=== PATIENT | female | born 1985 | race Caucasian/White ===

== ENCOUNTER 2018-07-07 06:05 | Emergency (ER) | payer OTHER ==
[2018-07-07 06:37] VITALS: BP 109/65; PULSE 61; TEMP 97.9; BMI 24.1
[2018-07-07] MEDS ORDERED: METHOCARBAMOL 750 MG TAB PO ONE (07:32)
[2018-07-07] MEDS ORDERED: ACETAMINOPHEN 500 MG TABLET (FP) PO ONE (07:32)
[2018-07-07] MEDS ORDERED: LIDOCAINE 5% TOPICAL PATCH TP ONE (07:36)
--- NOTE | 2018-07-07 07:39 | PDOC ---
Attending Attestation - [facility] HPI: 07/07/18 08:45 The patient is a 33-year-old female with past medical history significant for hypothyroidism and migraine (with a single episode of color vision loss, improved after 30 minutes), presents to the emergency department with right side neck and shoulder pain. The patient reports the pain presented on Thursday, states it is possible that she might have slept the wrong way. The patient reports going to work on Thursday, where she was moving stuff, denies heaving lifting. The patient presents today with constant pain to the right side that varies in severity. The patient reports taking Tylenol for the pain and using a heat pain, with mild relief noted. Denies prior similar pain, pain radiation to the arm, injury or trauma to the area. Denies fever, chills, cough, headache, chest pain, shortness of breath, numbness, tingling, weakness, urinary symptoms or changes in bowel habits. Allergies: ibuprofen and penicillin Social history: No past or present use of tobacco, alcohol or recreational drugs. Surgical history: None reported PCP: Dr. Arriaga. - Physicial Exam PE: 07/07/18 08:46 GENERAL: The patient is in no acute distress. HEAD: Normal with no signs of trauma. EYES: PERRLA, EOMI, sclera anicteric, conjunctiva clear. ENT: Ears normal, nares patent, oropharynx clear without exudates. Moist mucous membranes. NECK: +R. trapezius tenderness, no limitation with range of motion of the neck. supple without lymphadenopathy, JVD, or masses. LUNGS: Breath sounds equal, clear to auscultation bilaterally. No wheezes, and no crackles. HEART:Regular rate and rhythm, normal S1 and S2 without murmur, rub or gallop. ABDOMEN: Soft, nontender. No guarding, no rebound. No masses palpable. EXTREMITIES: Normal range of motion, no edema. No clubbing or cyanosis. No erythema, or tenderness. NEUROLOGICAL: Cranial nerves II through XII grossly intact. Normal speech. No focal neurological deficits. MUSCULOSKELETAL: Back non-tender to palpation, no CVA tenderness SKIN: Warm, Dry, normal turgor, no rashes or lesions noted. - Medical Decision Making 07/07/18 08:46 Documentation prepared by Kate Sanchez, acting as ophthalmic medical assistant for Iliana Espino MD/DO. <Kate Sanchez - Last Filed: 07/07/18 08:45> - Resident Resident Name: Nicole Garrison - ED Attending Attestation I have performed the following: I have examined & evaluated the patient, The case was reviewed & discussed with the resident, I agree w/resident's findings & plan, Exceptions are as noted - Medical Decision Making 33 yo F presenting with right trapezius pain Present for the past 2 days No trauma Pt awoke with these symptoms which were bearable Pt went to work and noted that her symptoms worsened No direct trauma No swelling No bruising No fevers or chills No limitations in range of motion of the neck No headache Pt has point tenderness in the right trapezius Pt given tylenol (allergic to NSAIDS) and muscle relaxant Pain has improved Will discharge to home Will ask pt to follow up with PMD Return to the ER for any other concerns or complaints <Iliana Espino - Last Filed: 07/08/18 09:46>
--- NOTE | 2018-07-07 07:49 | PDOC ---
History of Present Illness - General Chief Complaint: Pain, Acute Stated Complaint: NECK/SHOULDER PAIN - History of Present Illness Initial Comments: Daksha Benitez is a 33yo woman with a history of migraine with aura and hypothyroidism who presents with right posterior neck and shoulder pain that started when she woke up on Thursday. 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 She felt a little better yesterday morning and went to work. This morning when she woke, the pain was severe and her neck movements are limited. She believes that typing at the computer all day yesterday worsened her pain. Ms Benitez has tried taking acetaminophen 500mg every 6 hours without relief. She states that applying heat has helped slightly with the pain. She has not tried applying ice. She has never had anything like this happen before. The pain does not radiate down the arm or back. She denies headache, congestion, nausea/ vomiting, anterior neck or shoulder pain, or limitation in arm movement. She denies all neurological symptoms. She is not aware of any injury or exacerbating factor that preceded the pain. Past History - Past Medical History Allergies/Adverse Reactions: Allergies Allergy/AdvReac Type Severity Reaction Status Date / Time ibuprofen [From Motrin] Allergy Severe Hives Verified 07/07/18 06:34 Penicillins Allergy Unknown "I can Verified 07/07/18 06:34 from it" Home Medications: Ambulatory Orders Methocarbamol [Robaxin -] 500 mg PO TID #21 tablet 07/07/18 Thyroid [[place] Thyroid] 15 mg PO DAILY 07/07/18 Anemia: No Cardiac Disorders: No COPD: No Diabetes: No GI Disorders: No HTN: No Kidney Stones: No Liver Disease: No Seizures: No Thyroid Disease: Yes (HYPO) - Surgical History Abdominal Surgery: No Cholecystectomy: No GI Surgery: No - Immunization History Immunization Up to Date: Yes - Suicide/Smoking/Psychosocial Hx Smoking Status: No Smoking History: Never smoked Have you smoked in the past 12 months: No Number of Cigarettes Smoked Daily: 0 Information on smoking cessation initiated: No Hx Alcohol Use: No Drug/Substance Use Hx: No Substance Use Type: None Hx Substance Use Treatment: No Review of Systems - Review of Systems Comments:: General: No fevers, no chills, no weight or appetite change, no malaise HEENT: No changes in vision, no changes in hearing, no congestion, no sore throat CV: No chest pain, no palpitations, no LE edema Pulm: No SOB, no cough, no wheezing GI: No nausea or vomiting, no change in bowel habits, no melena : No frequency, no urgency, no dysuria Musc: No back pain, no joint swelling, no recent injury. See HPI Skin: No rash, no lesions, no erythema Endo: No excessive thirst, no heat/cold intolerance. h/o hypothyroidism Heme: No unusual bruising or bleeding, no swollen glands Neuro: No syncope, no numbness/tingling, no focal weakness. h/o migraines Vasc: No claudication Psych: No recent change in mood, no SI or HI *Physical Exam - Vital Signs Last Vital Signs Temp Pulse Resp BP Pulse Ox 97.9 F 61 18 109/65 98 07/07/18 06:05 07/07/18 06:05 07/07/18 06:05 07/07/18 06:05 07/07/18 06:05 - Physical Exam Comments: General: Comfortable, no acute distress HEENT: PERRL, EOMI, MMM, voice normal. Neck ROM limited by pain - Can turn to ~ 45 degrees b/l, flexion intact, minimal extension. TTP along R trapezius m. Cards: RRR, no murmur appreciated Pulm: Comfortable on room air, clear to auscultation bilaterally Abd: Soft, nontender, nondistended Ext: Atraumatic. No LE edema. ROM intact. Strength 5/5 and equal bilaterally Vasc: Extremities WWP. Palpable radial and pedal pulses bilaterally Skin: Normal color, no rashes or lesions Neuro: A&Ox3, CN grossly intact, normal speech, motor/sensory grossly intact and symmetric Psych: Mood appropriate to situation Medical Decision Making - Medical Decision Making 07/07/18 07:45 Daksha Benitez is a 33yo woman with a h/o hypothyroidism and migraines who presents with right posterior neck and shoulder pain since Thursday. - Pain is located along the right trapezius muscle. - No associated symptoms, neurologically intact - Most likely a muscle spasm - Ibuprofen allergy. Will give 1000mg acetaminophen, 750mg robaxin, lidocaine patch for symptoms - Most likely d/c home if pain is improved 07/07/18 08:34 - Pain improved significantly, improved ROM in neck - Plan to discharge home. Discussed home care and follow up with Ms Benitez in detail. She understands and agrees to this plan. Discussed with Dr Espino. Nicole Garrison PGY1 *DC/Admit/Observation/Transfer Diagnosis at time of Disposition: Neck pain on right side - Discharge Dispostion Disposition: HOME Condition at time of disposition: Stable Decision to Admit order: No - Prescriptions Prescriptions: Methocarbamol [Robaxin -] 500 mg PO TID #21 tablet - Referrals Referrals: Julio Arriaga MD [Primary Care Provider] - - Patient Instructions Printed Discharge Instructions: DI for Neck Pain Additional Instructions: Discharge Instructions You were seen in the emergency department for pain on the right neck and upper shoulder. This pain is most likely due to muscle spasm or irritation. Your pain and neck movement improved with acetaminophen, a muscle relaxant called Robaxin , and a lidocaine (numbing) patch. Medications: - You have been prescribed Robaxin to help relax the muscles in your neck and shoulder. You may take 500mg every 8 hours as needed - You may also take acetaminophen (Tylenol) 1000mg every 6-8 hours. You may wish to take the two medications together as they may work better together - You had a lidocaine patch applied to your neck/shoulder to help with pain. This may stay in place for 12 hours, until about 8pm. You can buy more lidocaine patches at any pharmacy. Look for 4% lidocaine patches on the shelf. Other home care: - Apply heat packs to the painful area to help relax the muscles. Do not apply heat over the lidocaine patch - Gently stretch your neck and shoulder as much as tolerated - Try to avoid activities that tense the muscles in your neck and shoulder for extended periods of time. When at work, frequently stretch the muscles. See the attached information sheet for additional recommendations. Follow up: - See your primary physician within the next week if your symptoms persist - Seek immediate medical care if you have any numbness/tingling or weakness in your arm, the pain moves down your arm or back, if your pain worsens significantly, or if you have any medical emergency. - Post Discharge Activity
[2018-07-07] MEDS ORDERED: METHOCARBAMOL 500 MG TABLET ONE (08:11)
[2018-07-07] MEDS ORDERED: ACETAMINOPHEN 325 MG TABLET (FP) ONE (08:11)
[2018-07-07] MEDS ORDERED: LIDOCAINE 5% TOPICAL PATCH ONE (08:11)
== END 2018-07-07 08:50 | disposition home or self-care (01) ==
LOC: JER 06:05
DX: M54.2 Cervicalgia (principal); M62.838 Other muscle spasm; E03.9 Hypothyroidism, unspecified; Z86.69 Personal history of other diseases of the nervous system and sense organs
CPT/HCPCS: 99281-25

== ENCOUNTER 2019-08-18 09:06 | Emergency (ER) | payer OTHER ==
[2019-08-18 09:20] VITALS: BP 111/66; PULSE 88; TEMP 98.2; BMI 24.1
[2019-08-18] MEDS ORDERED: DEXAMETHASONE LIQUID 0.5 MG/5 ML PO ONE (09:40)
[2019-08-18] MEDS ORDERED: ALBUTEROL SO4 2.5/IPRATROPIUM 0.5 INH SOL 3 ML VIAL.NEB. NEB ONE ×2 (09:40→09:42)
[2019-08-18] MEDS ORDERED: DEXAMETHASONE SOD PHOSPHATE 10 MG/1 ML VIAL ONE (09:42)
--- NOTE | 2019-08-18 09:47 | PDOC ---
History of Present Illness - General Chief Complaint: Cold Symptoms Stated Complaint: COLD SYMPTOMS Time Seen by Provider: 08/18/19 09:16 - History of Present Illness Initial Comments: 08/18/19 09:41 CHIEF COMPLAINT: cold sxs HISTORY OF PRESENT ILLNESS: 34 yo F with hx of "seasonal asthma" presents to [facility] with sore throat, cough, runny nose, and hoarse voice x 1 week. Patient reports chest tightness with coughing and taking sudafed PE without relief. Patient denies any fever, vomiting, diarrhea. No recent travel or sick contacts. PAST MEDICAL HISTORY: Denies past medical history FAMILY HISTORY: Denies SOCIAL HISTORY: Denies tobacco, alcohol, illicit drug use. SURGICAL HISTORY: Denies ALLERGIES: PCN, ibuprofen REVIEW OF SYSTEMS General/Constitutional: Denies fever or chills. Denies weakness, weight change. HEENT: Runny nose, sore throat, loss of voice. Denies change in vision. Denies ear pain or discharge. Cardiovascular: Denies chest pain or shortness of breath. Respiratory: Cough x 1 week. Denies wheezing, or hemoptysis. Gastrointestinal: Denies nausea, vomiting, diarrhea or constipation. Denies rectal bleeding. Genitourinary: Denies dysuria, frequency, or change in urination. Musculoskeletal: Denies joint or muscle swelling or pain. Denies neck or back pain. Skin and breasts: Denies rash or easy bruising. Neurologic: Denies headache, vertigo, loss of consciousness, or loss of sensation. Psychiatric: Denies depression or anxiety. Endocrine: Denies increased thirst. Denies abnormal weight change. Hematologic/Lymphatic: Denies anemia, easy bleeding, or history of blood clots. Allergic/Immunologic: Denies hives or skin allergy. Denies latex allergy. PHYSICAL EXAM General Appearance: Well-appearing, appropriately dressed. No apparent distress , no intoxication. HEENT: Hoarse voice. EOMI, PERRLA, normal ENT inspection, normal voice, TMs normal, pharynx normal. No conjunctival pallor. No photophobia, scleral icterus. Neck: Supple. Trachea midline. No tenderness, rigidity, carotid bruit, stridor , lymphadenopathy, or thyromegaly. Respiratory/Chest: Lungs CTAB. No shortness of breath, chest tenderness, respiratory distress, accessory muscle use. No crackles, rales, rhonchi, stridor , wheezing, dullness Cardiovascular: RRR. S1, S2. No JVD, murmur, bradycardia, tachycardia. Vascular Pulses: Dorsalis-Pedis (R): 2+, Dorsalis-Pedis (L): 2+ Gastrointestinal/Abdominal: Normal bowel sounds. Abdomen soft, non-distended. No tenderness or rebound tenderness. No organomegaly, pulsatile mass, guarding , hernia, hepatomegaly, splenomegaly. Lymphatic: No adenopathy, tenderness. Musculoskeletal/Extremities: Normal inspection. FROM of all extremities, normal capillary refill. Pelvis Stable. No CVA tenderness. No tenderness to extremities, pedal edema, swelling, erythema or deformity. Integumentary: Appropriate color, dry, warm. No cyanosis, erythema, jaundice or rash Neurologic: substance abuse rn II-XII intact. Fully oriented, alert. Appropriate mood/affect. Motor strength 5/5. No appreciable EOM palsy, facial droop or sensory deficit. Past History - Past Medical History Allergies/Adverse Reactions: Allergies Allergy/AdvReac Type Severity Reaction Status Date / Time ibuprofen [From Motrin] Allergy Severe Hives Verified 07/07/18 06:34 Penicillins Allergy Unknown "I can Verified 07/07/18 06:34 from it" Home Medications: Ambulatory Orders Methocarbamol [Robaxin -] 500 mg PO TID #21 tablet 07/07/18 Thyroid [[place] Thyroid] 15 mg PO DAILY 07/07/18 Azithromycin [Zithromax 250mg Tablets -] 250 mg PO UTDICT #6 tab 08/18/19 Benzonatate [Tessalon Pearls -] 100 mg PO TID #21 capsule 08/18/19 Pseudoephedrine HCl [Pseudoephedrine ER] 120 mg PO BID #20 tablet.er 08/18/19 Anemia: No Cardiac Disorders: No COPD: No Diabetes: No GI Disorders: No HTN: No Kidney Stones: No Liver Disease: No Seizures: No Thyroid Disease: Yes (HYPO) - Surgical History Abdominal Surgery: No Cholecystectomy: No GI Surgery: No - Immunization History Immunization Up to Date: Yes - Psycho Social/Smoking Cessation Hx Smoking Status: No Smoking History: Never smoked Have you smoked in the past 12 months: No Number of Cigarettes Smoked Daily: 0 Hx Alcohol Use: No Drug/Substance Use Hx: No Substance Use Type: None Hx Substance Use Treatment: No *Physical Exam - Vital Signs Last Vital Signs Temp Pulse Resp BP Pulse Ox 98.2 F 88 17 111/66 96 08/18/19 09:15 08/18/19 09:15 08/18/19 09:15 08/18/19 09:15 08/18/19 09:15 Medical Decision Making - Medical Decision Making 08/18/19 09:47 34 yo F with hx of "seasonal asthma" presents to [facility] with sore throat, cough, runny nose, and hoarse voice x 1 week. -decadron -duoneb Anticipatory guidance provided. Advised patient to take medication as prescribed and follow up with PCP within 1 week. Advised patient of signs and symptoms for return to ED. Patient verbalized understanding and agrees to plan. Discharge - Discharge Information Problems reviewed: Yes Clinical Impression/Diagnosis: Upper respiratory infection Qualifiers: URI type: unspecified URI Qualified Code(s): J06.9 - Acute upper respiratory infection, unspecified Condition: Stable Disposition: HOME - Admission No - Additional Discharge Information Prescriptions: Azithromycin [Zithromax 250mg Tablets -] 250 mg PO UTDICT #6 tab Benzonatate [Tessalon Pearls -] 100 mg PO TID #21 capsule Pseudoephedrine HCl [Pseudoephedrine ER] 120 mg PO BID #20 tablet.er - Follow up/Referral Referrals: Marquez Gamez MD [Primary Care Provider] - - Patient Discharge Instructions Patient Printed Discharge Instructions: DI for Viral Upper Respiratory Infection -- Adult Additional Instructions: Please take medications as prescribed. As discussed do not fill your prescription for azithromycin unless your symptoms do not improve after another 3 days. If you develop fever, vomiting, diarrhea, or any new or worsening symptoms, please return to the ER. - Post Discharge Activity Work/Back to School Note: Back to Work
--- NOTE | 2019-08-20 23:23 | EKG ---
Test Reason : Blood Pressure : / mmHG Vent. Rate : 064 BPM Atrial Rate : 064 BPM P-R Int : 092 ms QRS Dur : 090 ms QT Int : 378 ms P-R-T Axes : 043 049 030 degrees QTc Int : 389 ms SINUS RHYTHM WITH SHORT WI OTHERWISE NORMAL ECG WHEN COMPARED WITH ECG OF 13-AUG-2010 21:58, [place] INTERVAL HAS DECREASED VENT. RATE HAS DECREASED BY 36 BPM Confirmed by LARA NATH MD ([id number]) on 08/20/2019 11:23:33 PM Referred By: Confirmed By:LARA NATH MD
== END 2019-08-18 09:56 | disposition home or self-care (01) ==
LOC: JERFT 09:06
PROC: 3E0F7GC Introduction of Other Therapeutic Substance into Respiratory Tract, Via Natural or Artificial Opening (ICD-10-PCS; principal; 2019-08-18)
DX: J06.9 Acute upper respiratory infection, unspecified (principal); J45.998 Other asthma; E03.9 Hypothyroidism, unspecified; Z88.0 Allergy status to penicillin; Z88.6 Allergy status to analgesic agent
CPT/HCPCS: 93005; 93010; 99282-25

== ENCOUNTER 2022-03-09 14:28 | Emergency (ER) | payer OTHER ==
[2022-03-09 14:57] VITALS: BP 117/75; PULSE 75; RESP 16; TEMP 98.4
[2022-03-09] MEDS ORDERED: ACETAMINOPHEN WITH CODEINE 300MG/30MG TABLET PO ONE (15:30)
[2022-03-09] MEDS ORDERED: ACETAMINOPHEN WITH CODEINE 300MG/30MG TABLET ONE (15:32)
== END 2022-03-09 18:39 | disposition home or self-care (01) ==
LOC: JERFT 14:28 → JER 14:28 → JERFT 18:39
DX: S09.90XA Unspecified injury of head, initial encounter (principal); W20.8XXA Other cause of strike by thrown, projected or falling object, initial encounter
CPT/HCPCS: 70450-TC; 72125-TC; 99285-25

== ENCOUNTER 2022-04-17 13:43 | Emergency (ER) | payer OTHER ==
[2022-04-17 13:50] VITALS: BP 142/89; PULSE 99; RESP 20; TEMP 98.4; BMI 22.6
[2022-04-17] MEDS ORDERED: DEXAMETHASONE SOD PHOSPHATE 10 MG/1 ML VIAL PO ONE (14:34)
[2022-04-17] MEDS ORDERED: DEXAMETHASONE SOD PHOSPHATE 10 MG/1 ML VIAL ONE (14:36)
== END 2022-04-17 15:05 | disposition home or self-care (01) ==
LOC: JERFT 13:43
DX: J02.9 Acute pharyngitis, unspecified (principal)
CPT/HCPCS: 36415; 86308; 99283-25; J1100